=== PATIENT | female | born 1960 | race Caucasian/White ===

== ENCOUNTER → 2021-01-03 | Outpatient (CLI) | payer OTHER ==
--- NOTE | 2021-01-04 16:12 | SLEEPCENT ---
DATE: 01/03/2021 ORDERED BY: Corby Ruffin Nocturnal polysomnography was performed for the titration of pressure therapy in this patient with a prior history of obstructive sleep apnea syndrome and intolerance of pressure therapy. For testing, a ResMed Quattro full-face mask of small size was used. There was 4 cm of water pressure applied to the circuit, and the lights were extinguished. There was 8 hours and 25 minutes of data reviewed. There was 284.5 minutes of sleep identified. Sleep latency was prolonged at 75.5 minutes. REM sleep was not achieved. Overall sleep architecture showed poor progression. Some fragmentation was noted. Overall sleep efficiency was 56.9%. The electrocardiogram showed a sinus rhythm The average heart rate was 60 beats per minute. Rate ranged 40-80. EEG showed significant coarsening in background, possibly medication effect. No focal events were identified, and there were normal waveforms for wake and sleep. Respiratory events were fully palliated with CPAP at a pressure of +8. There was some limb activity noted in the EMG lead, but the limb movement arousal index was 8.2. IMPRESSION: Obstructive sleep apnea syndrome (G47.33). RECOMMENDATION: Nightly use of pressure therapy, 8 cm of water. cc: Dr. Spike Bruno
== END ==
LOC: M SLEEP 20:00
PROVIDERS: ATTEND Physician Assistant
DX: G47.33 Obstructive sleep apnea (adult) (pediatric) (principal)